=== PATIENT | male | born 1980 | race Native Hawaiian/Other Pacific Islander ===

== ENCOUNTER 2019-04-10 13:27 | Emergency (ER) | payer OTHER ==
[2019-04-10 13:33] VITALS: BP 149/89
--- NOTE | 2019-04-10 13:52 | ED Physician Documentation ---
PD HPI LOWER EXT INJURY - Stated complaint Stated Complaint: LEG PAIN - Chief complaint Chief Complaint: Ext Problem - History obtained from History obtained from: Patient (Play basketball today and felt a pop in the medial left calf. He is not able to walk or bear weight. No other injuries. No health issues. No recent antibiotics.) Review of Systems Constitutional: denies: Fever, Chills Nose: reports: Reviewed and negative Cardiac: reports: Reviewed and negative PD PAST MEDICAL HISTORY - Present Medications Home Medications: Ambulatory Orders Medication Instructions Recorded Confirmed No Known Home Medications 04/10/19 04/10/19 - Allergies Allergies/Adverse Reactions: Allergies Allergy/AdvReac Type Severity Reaction Status Date / Time No Known Drug Allergies Allergy Verified 04/10/19 13:33 PD ED PE NORMAL - Vitals Vital signs reviewed: Yes - General General: Alert and oriented X 3, No acute distress - Extremities Extremities: Other (No Achilles tenderness, Stewart's test is normal. No tenderness over the calcaneus. No bony tenderness of the tibia or fibula on the left. Mild muscular tenderness in the mid medial and upper calf without tense compartment or severe tenderness. Passive range of motion is painless. He has good strength in plantarflexion of the left foot. Normal pedal pulses and sensation.) Results - Vitals Vitals: Vital Signs - 24 hr 04/10/19 13:31 Temperature 36.7 C Heart Rate 80 Respiratory 16 Rate Blood Pressure 149/89 H O2 Saturation 99 Oxygen O2 Source Room air PD MEDICAL DECISION MAKING - ED course ED course: 38-year-old gentleman who sustained what seems like a partial calf tear while playing basketball. No evidence of compartment syndrome. No evidence of Achilles issue. He is placed in a boot and up on crutches and conservative care was advised with orthopedic follow-up if not better. Departure - Departure Disposition: 01 Home, Self Care Clinical Impression: Calf pain Qualifiers: Laterality: left Qualified Code(s): M79.662 - Pain in left lower leg Condition: Good Record reviewed to determine appropriate education?: Yes Instructions: ED Strain Muscle Ext Comments: It seems today that she suffered a partial tear of your calf musculature. There is no evidence of Achilles tendon issue. You do not need to wear the boot in the shower or while in bed. You can take ibuprofen as needed for pain. If it still bothering you next week [place]
== END 2019-04-10 14:08 | disposition home or self-care (01) ==
LOC: ED 13:27
DX: M79.662 Pain in left lower leg (principal)
CPT/HCPCS: 99282; 99283

== ENCOUNTER 2020-08-31 11:10 | Emergency (ER) | payer OTHER ==
[2020-08-31 11:24] VITALS: BP 174/93
--- NOTE | 2020-08-31 12:41 | CT Report ---
PROCEDURE: HEAD WO INDICATIONS: left sided headache with exertion TECHNIQUE: Noncontrast 4.5 mm thick angled axial sections acquired from the foramen magnum to the vertex. For r adiation dose reduction, the following was used: automated exposure control, adjustment of mA and/or kV according to patient size. COMPARISON: None. FINDINGS: Image quality: Excellent. CSF spaces: Basal cisterns are patent. No extra-axial fluid collections. Ventricles are normal in size and shape. Brain: No midline shift. No intracranial masses or hemorrhage. Solis-white matter interface is norm al. Skull and face: Calvarium and visualized facial bones are intact, without suspicious lesions. Sinuses: Visualized sinuses and mastoids are clear. IMPRESSION: No acute intracranial process. Reviewed by: Valentine Albert MD on 08/31/2020 12:40 PM PDT Approved by: Valentine Albert MD on 08/31/2020 12:40 PM PDT Station ID: [id number]
--- NOTE | 2020-08-31 12:46 | ED Physician Documentation ---
PD HPI HEADACHE - Stated complaint Stated Complaint: HEADACHE - Chief complaint Chief Complaint: Neuro - History obtained from History obtained from: Patient - History of Present Illness Timing - onset: How many days ago (3) Timing - onset during: Exertion Timing - duration: Days (3) Timing - details: Abrupt onset, Now resolved Location: Left Quality: Throbbing Associated symptoms: Nausea. No: Fever, Stiff neck, Vomiting Improved by: Rest Worsened by: Other (exertion) Contributing factors: No: Anticoagulated Similar symptoms before: Has not had sx before Recently seen: Not recently seen - Additional information Additional information: 40-year-old male who does a regular workout at the gym at least 3 days a week has developed an acute headache on the left side of his head that stopped him from working out 3 days ago. He developed this with exertion and it resolved. He developed a second headache with exertion the following day and again today. He has not had any neurologic deficit associated with this he had some nausea he did not have vomiting. He does stay hydrated drinks 2 quarts of water per day out of the labeled bottle. He denies any caffeine use other than supplements that he is using. Review of Systems Constitutional: denies: Fever Eyes: denies: Decreased vision Ears: denies: Ear pain Nose: denies: Congestion Throat: denies: Sore throat Cardiac: denies: Chest pain / pressure, Palpitations Respiratory: denies: Dyspnea, Cough GI: reports: Nausea. denies: Abdominal Pain, Vomiting, Constipation, Diarrhea : denies: Dysuria, Frequency Skin: denies: Rash Musculoskeletal: denies: Neck pain, Back pain, Extremity pain Neurologic: reports: Headache. denies: Generalized weakness, Focal weakness, Numbness, Syncope, Seizure, Confused, Altered mental status, Head injury, LOC PD PAST MEDICAL HISTORY - Past Medical History Past Medical History: No - Past Surgical History Past Surgical History: No - Present Medications Home Medications: Ambulatory Orders Medication Instructions Recorded Confirmed No Known Home Medications 04/10/19 04/10/19 - Allergies Allergies/Adverse Reactions: Allergies Allergy/AdvReac Type Severity Reaction Status Date / Time No Known Drug Allergies Allergy Verified 08/31/20 11:24 - Social History Does the pt smoke?: No Smoking Status: Never smoker Does the pt drink ETOH?: Yes Does the pt have substance abuse?: No - Immunizations Immunizations are current?: Yes - POLST Patient has POLST: No PD ED PE NORMAL - Vitals Vital signs reviewed: Yes (Hypertensive) - General General: Alert and oriented X 3, No acute distress, Well developed/nourished - HEENT HEENT: Atraumatic, PERRL, EOMI, Ears normal, Moist mucous membranes, Pharynx benign, Dentition benign - Neck Neck: Supple, no meningeal sign, No bony TTP - Cardiac Cardiac: RRR, No murmur - Respiratory Respiratory: No respiratory distress, Clear bilaterally - Abdomen Abdomen: Normal bowel sounds, Soft, Non tender, Non distended, No organomegaly - Back Back: No CVA TTP, No spinal TTP - Derm Derm: Normal color, Warm and dry, No rash - Extremities Extremities: No deformity, No edema - Neuro Neuro: Alert and oriented X 3, stitch bonding machine drawer in 2-12 intact, No motor deficit, No sensory deficit, Normal speech Eye Opening: Spontaneous Motor: Obeys Commands Verbal: Oriented GCS Score: 15 - Psych Psych: Normal mood, Normal affect Results - Vitals Vitals: Vital Signs - 24 hr 08/31/20 11:20 Temperature 36.7 C Heart Rate 74 Respiratory 16 Rate Blood Pressure 174/93 H O2 Saturation 97 Oxygen O2 Source Room air - Rads (name of study) head Radiology: Prelim report reviewed (Impression: No acute intracranial process.), EMP read indepedently, See rad report Procedures - IVC sono (time) 1308 Bedside IVC sono: IVC measures (cm) (1.09), Dehydration (est 1 liter deficit) PD MEDICAL DECISION MAKING - ED course Complexity details: reviewed results, re-evaluated patient, considered differential, d/w patient ED course: 40 moderate 40-year-old male with a left-sided throbbing headache that is related to exertion has a normal-appearing CT scan of the head. He gives history consistent with exertionally related headache and he is found to be mildly dehydrated on interrogation the inferior vena cava. I suspect this is the reason for his headache and I have shared this information with the patient. He will hydrate with an additional quart of Gatorade in addition to the 2 quarts of water he is drinking daily. Departure - Departure Disposition: 01 Home, Self Care Clinical Impression: Dehydration determined by examination Cephalalgia Qualifiers: Headache type: unspecified Headache chronicity pattern: acute headache Intractability: not intractable Qualified Code(s): R51.9 - Headache, unspecified Condition: Stable Instructions: ED Headache Tension, ED Dehydration Follow-Up: NACHO Radford [Provider Group]
== END 2020-08-31 13:18 | disposition home or self-care (01) ==
LOC: ED 11:10
DX: E86.0 Dehydration (principal); R51.9 Headache, unspecified; R11.0 Nausea
CPT/HCPCS: 99282; 99284